=== PATIENT | male | born 1970 | race Caucasian/White ===

== ENCOUNTER 2021-01-25 16:23 | Emergency (ER) | payer OTHER ==
[~2021-01-25] VITALS: Ht 180.3 cm; Wt 95.3 kg
[2021-01-25 17:47] LABS: HEMOGLOBIN 15.4 gm/dl (14.0-17.5); RED BLOOD COUNT 4.67 M/UL (4.20-5.50); WHITE BLOOD COUNT 5.6 K/UL (4.5-11.0)
[2021-01-25 18:12] LABS: BUN/CREATININE RATIO 10 (0-10)
== END 2021-01-26 00:20 | disposition home or self-care (01) ==
LOC: ER1 16:23
PROVIDERS: Nurse Practitioner; Student in an Organized Health Care Education/Training Program
DX: F32.9 Major depressive disorder, single episode, unspecified (principal); F10.10 Alcohol abuse, uncomplicated; R07.9 Chest pain, unspecified; Z20.822 Contact with and (suspected) exposure to COVID-19; E11.9 Type 2 diabetes mellitus without complications; I10 Essential (primary) hypertension; Z88.1 Allergy status to other antibiotic agents
CPT/HCPCS: 71045; 80053; 80307; 81001; 82550; 82553; 83874; 84484; 85025; 93005; 96374; 99284; G0480; J3411; J3475; J7030; U0002